=== PATIENT | male | born 1995 | race Caucasian/White ===

== ENCOUNTER 2018-01-08 07:28 | Outpatient (CLI) | payer OTHER | END 2018-01-08 07:29 | disposition critical access hospital (66) | LOC: EMS 07:28 | PROVIDERS: ATTEND Surgery | DX: R10.9 Unspecified abdominal pain (principal); R11.0 Nausea | CPT/HCPCS: A0425; A0427 ==

== ENCOUNTER 2018-01-08 07:50 | Emergency (ER) | payer OTHER ==
[2018-01-08] MEDS ORDERED: SODIUM CHLORIDE 0.9% 1,000 ML IV ONE (08:13)
--- NOTE | 2018-01-08 08:16 | ED Physician Documentation ---
PD HPI ABD PAIN - Stated complaint Stated Complaint: LOWER ABD PX - Chief complaint Chief Complaint: Abd Pain - History obtained from History obtained from: Patient, Family - History of Present Illness Timing - onset: Today Timing - duration: Hours Timing - details: Abrupt onset, Still present Quality: Sharp, Pain Location: LUQ Radiation: Left flank Improved by: Meds (fentanyl IVP) Worsened by: Other (nothing) Associated symptoms: Nausea, Vomiting Similar symptoms before: Diagnosis (kidney stone) Recently seen: Emergency Dept - Additional information Additional information: 22-year-old male with history of kidney stones has developed pain in the left flank pain radiating down into his groin 1 week ago he was seen at [facility] and treated he does feel like he passed this stone about 3 days ago he is now developed symptoms again. He has a known history of kidney stone believes he had his last CAT scan about 2 years ago. Review of Systems Constitutional: denies: Fever Eyes: denies: Decreased vision Ears: denies: Ear pain Nose: denies: Congestion Throat: denies: Sore throat Cardiac: denies: Chest pain / pressure, Palpitations Respiratory: denies: Dyspnea, Cough GI: reports: Abdominal Pain, Nausea, Vomiting : denies: Dysuria, Frequency PD PAST MEDICAL HISTORY - Past Medical History Past Medical History: No Cardiovascular: None Respiratory: None Neuro: None Endocrine/Autoimmune: None GI: None : Kidney stones HEENT: None Psych: None Musculoskeletal: None Derm: None - Past Surgical History Past Surgical History: No - Present Medications Home Medications: Ambulatory Orders Medication Instructions Recorded Confirmed Terbinafine HCl 1 applic TOP BID 14 Days powder 02/12/14 HYDROcod/ACETAM 5/325 [[place] 5/325] 1 - 2 ea PO Q6H PRN #15 tablet 01/08/18 - Allergies Allergies/Adverse Reactions: Allergies Allergy/AdvReac Type Severity Reaction Status Date / Time No Known Drug Allergies Allergy Verified 02/12/14 14:43 - Social History Does the pt smoke?: Yes Smoking Status: Current every day smoker Does the pt drink ETOH?: No ETOH Use: Beer Does the pt have substance abuse?: No Substance Use and Type: Marijuana - Immunizations Immunizations are current?: Yes - POLST Patient has POLST: No PD ED PE NORMAL - Vitals Vital signs reviewed: Yes (normal ) - General General: Alert and oriented X 3, No acute distress, Well developed/nourished - HEENT HEENT: Atraumatic, PERRL, EOMI - Neck Neck: Supple, no meningeal sign, No bony TTP - Cardiac Cardiac: RRR, No murmur - Respiratory Respiratory: No respiratory distress, Clear bilaterally - Abdomen Abdomen: Soft, Non tender - Back Back: No CVA TTP, No spinal TTP - Derm Derm: Normal color, Warm and dry, No rash - Extremities Extremities: No deformity, No edema - Neuro Neuro: Alert and oriented X 3, No motor deficit, No sensory deficit, Normal speech Eye Opening: Spontaneous Motor: Obeys Commands Verbal: Oriented GCS Score: 15 - Psych Psych: Normal mood, Normal affect Results - Vitals Vitals: Vital Signs - 24 hr 01/08/18 01/08/18 01/08/18 07:53 07:59 10:08 Temperature 36 C L 36 C L 37.1 C Heart Rate 48 L 55 L 50 L Respiratory 12 12 16 Rate Blood Pressure 127/70 120/76 125/66 O2 Saturation 100 100 100 Oxygen O2 Source Room air - Labs Labs: Laboratory Tests 01/08/18 01/08/18 01/08/18 08:13 08:13 09:30 WBC 10.6 RBC 5.07 Hgb 11.7 L Hct 37.5 L MCV 73.9 L MCH 23.0 L MCHC 31.1 L RDW 22.7 H Plt Count 233 MPV 8.5 Neut # (Auto) 8.6 H Lymph # (Auto) 1.1 L [place] # (Auto) 0.6 Eos # (Auto) 0.3 Baso # (Auto) 0.1 Absolute Nucleated RBC 0.00 Nucleated RBC % 0.0 Manual Slide Review Indicated Platelet Estimate NORMAL (130-450,000) Platelet Morphology NORMAL APPEARANCE RBC Morph Micro Appear 1+ TEARDROP CELLS Sodium 140 Potassium 4.3 Chloride 105 Carbon Dioxide 29 Anion Gap 6.0 BUN 18 Creatinine 1.0 Estimated GFR (MDRD) 92 Glucose 118 H Calcium 9.3 Total Bilirubin 0.6 AST 22 ALT 27 Alkaline Phosphatase 40 L Total Protein 7.3 Albumin 4.5 Globulin 2.8 Albumin/Globulin Ratio 1.6 Lipase 25 Urine Color YELLOW Urine Clarity CLEAR Urine pH 8.0 H Ur Specific [place] 1.015 Urine Protein NEGATIVE Urine Glucose (UA) NEGATIVE Urine Ketones NEGATIVE Urine Occult Blood LARGE H Urine Nitrite NEGATIVE Urine Bilirubin NEGATIVE Urine Urobilinogen 0.2 (NORMAL) Ur Leukocyte Esterase NEGATIVE Urine RBC TNTC H Urine WBC 0-3 Ur Squamous Epith Cells NONE SEEN Urine Bacteria None Seen Urine Mucus Few Strands Ur Microscopic Review INDICATED Urine Culture Comments NOT INDICATED - Rads (name of study) CT abd/pel without Radiology: Prelim report reviewed (Impression: 1. Moderate left hydronephrosis secondary to an obstructing 4 x 4 mm calculus in the proximal ureter. 2 Nonobstructing right nephrolithiasis. 3 Additional findings as above.), EMP read indepedently, See rad report Procedures - Bedside sono Bedside sono by EMP: With use of bedside ultrasound the left kidney is imaged there is evidence of hydronephrosis and the kidney is sonographically nontender. PD MEDICAL DECISION MAKING - ED course Complexity details: reviewed old records, reviewed results, re-evaluated patient , considered differential, d/w patient, d/w family ED course: 22-year-old male with history of kidney stones has typical symptoms in the left side he has a history of recurrent kidney stone and was last treated for kidney stone 1 week ago. He did not have imaging done at that time and today he is requesting we do imaging.The patient did have relief with the use of the fentanyl and had a second dose of Toradol while here in the emergency department. His imaging is consistent with a obstructing 4 mm stone in the proximal ureter and he has multiple other stones in the right side. I shared these images with the patient and recommended he follow-up with a urologist if he does not have resolution of his pain within the week. - Sepsis Event Vital Signs: Vital Signs - 24 hr 01/08/18 01/08/18 01/08/18 07:53 07:59 10:08 Temperature 36 C L 36 C L 37.1 C Heart Rate 48 L 55 L 50 L Respiratory 12 12 16 Rate Blood Pressure 127/70 120/76 125/66 O2 Saturation 100 100 100 Oxygen O2 Source Room air Departure - Departure Disposition: 01 Home, Self Care Clinical Impression: Ureterolithiasis Condition: Stable Instructions: ED Stone Renal W Colic Follow-Up: [facility] [Provider Group] Prescriptions: HYDROcod/ACETAM 5/325 [[place] 5/325] 1 - 2 ea PO Q6H PRN #15 tablet PRN Reason: Pain Forms: Activity restrictions
[2018-01-08 08:50] LABS: BASOPHILS # (AUTO) 0.1 10^3/uL (0.0-0.1); BASOPHILS % (AUTO) 0.7 %; EOSINOPHILS # (AUTO) 0.3 10^3/uL (0.0-0.7); EOSINOPHILS % (AUTO) 2.9 %; HGB - HEMOGLOBIN 11.7 g/dL (14.0-18.0); LYMPHOCYTES # (AUTO) 1.1 10^3/uL (1.5-3.5); MEAN CORPUSCULAR HGB CONC 31.1 g/dL (32.0-36.0); MEAN CORPUSCULAR VOLUME 73.9 fL (80.0-94.0); MEAN PLATELET VOLUME 8.5 fL (7.4-11.4); MONOCYTES # (AUTO) 0.6 10^3/uL (0.0-1.0); MONOCYTES % (AUTO) 5.2 %; NEUTROPHILS # (AUTO) 8.6 10^3/uL (1.5-6.6); NEUTROPHILS % (AUTO) 81.2 %; PLT - PLATELET COUNT 233 10^3/uL (130-450); RED BLOOD COUNT 5.07 10^6/uL (4.70-6.10); RED CELL DISTRIBUTION WIDTH 22.7 % (12.0-15.0); WHITE BLOOD COUNT 10.6 x10^3/uL (4.8-10.8)
[2018-01-08 08:56] LABS: ALBUMIN 4.5 g/dL (3.2-5.5); ALBUMIN/GLOBULIN RATIO 1.6 (1.0-2.2); BILIRUBIN,TOTAL 0.6 mg/dL (0.2-1.0); CALCIUM 9.3 mg/dL (8.5-10.3); TOTAL PROTEIN 7.3 g/dL (6.7-8.2)
[2018-01-08] MEDS ORDERED: KETOROLAC 60 MG/2 ML VIAL IVP STA (09:41)
[2018-01-08 09:47] LABS: BILIRUBIN,URINE NEGATIVE (NEGATIVE); GLUCOSE, URINE (UA) NEGATIVE (NEGATIVE); KETONES,URINE (UA) NEGATIVE (NEGATIVE); LEUKOCYTE ESTERASE, URINE NEGATIVE (NEGATIVE); NITRITE,URINE NEGATIVE (NEGATIVE); OCCULT BLOOD,URINE LARGE (NEGATIVE); PROTEIN,URINE NEGATIVE (NEGATIVE); UROBILINOGEN,URINE 0.2 (NORMAL) E.U./dL (NORMAL)
[2018-01-08 09:54] LABS: PLATELET ESTIMATE, MANUAL NORMAL (130-450,000) (NORMAL); PLATELET MORPHOLOGY NORMAL APPEARANCE (NORMAL)
[2018-01-08 10:05] LABS: CLARITY,URINE CLEAR (CLEAR)
[2018-01-08 10:10] LABS: BACTERIA,URINE None Seen /HPF (None Seen); MUCUS,URINE Few Strands; RBC,URINE TNTC /HPF (0-5); SQUAMOUS EPITHELIAL CELL,UR NONE SEEN (<= Few)
[2018-01-08 10:11] VITALS: BP 125/66
--- NOTE | 2018-01-08 11:16 | CT Report ---
Procedure Date: 01/08/2018 Accession Number: [id number] / [id number] Procedure: CT - Abdomen/Pelvis W/O CPT Code: FULL RESULT: EXAM: CT ABDOMEN AND PELVIS (CT KUB) EXAM DATE: 01/08/2018 08:36 AM. CLINICAL HISTORY: Left flank pain hydroon bedside. COMPARISONS: None. TECHNIQUE: Routine axial helical CT imaging was performed through the abdomen and pelvis without IV contrast. Reconstructions: Coronal and sagittal. In accordance with CT protocol optimization, one or more of the following dose reduction techniques were utilized for this exam: automated exposure control, adjustment of mA and/or KV based on patient size, or use of iterative reconstructive technique. FINDINGS: Lung Bases: Unremarkable. Right Kidney/Ureter: At least 5 nonobstructing calculi; the largest is in the inferior pole and measures 5 x 4 mm. No hydronephrosis or hydroureter. No perinephric stranding. Left Kidney/Ureter: Moderate hydronephrosis secondary to an obstructing 4 x 4 mm calculus in the proximal ureter, which is at the level of the L4 vertebra. No other urinary tract calculi. There is mild periureteric fat stranding. Other Solid Organs: Mild tomoderate hepatosplenomegaly. Noncontrast images of the pancreas and bilateral adrenal glands are unremarkable. Gallbladder/Bile Ducts: Unremarkable. Peritoneal Cavity: No ascites or pneumoperitoneum. No bowel obstruction or abnormal stool burden. Normal appendix. Pelvic Organs: No bladder stones or wall thickening. Noncontrast images of the visualized pelvic organs are unremarkable. Vasculature: Unremarkable. Other: Bilateral L5 spondylolysis without spondylolisthesis. No acute osseous abnormality or aggressive osseous lesion. IMPRESSION: 1. Moderate left hydronephrosis secondary to an obstructing 4 x 4 mm calculus in the proximal ureter. 2. Nonobstructing right nephrolithiasis. 3. Additional findings as above. RADIA
== END 2018-01-08 10:24 | disposition home or self-care (01) ==
LOC: EDUNIT# → ED 07:50
DX: N13.2 Hydronephrosis with renal and ureteral calculous obstruction (principal); Z87.442 Personal history of urinary calculi; F17.200 Nicotine dependence, unspecified, uncomplicated
CPT/HCPCS: 36415; 74176; 80053; 81001; 81003; 83690; 85025; 87086; 96361; 96374; 99283

== ENCOUNTER 2018-01-14 | Outpatient (CLI) | END 2018-01-14 02:15 | disposition critical access hospital (66) | CPT/HCPCS: A0425; A0427 ==

== ENCOUNTER 2018-01-14 02:31 | Emergency (ER) | payer OTHER ==
[2018-01-14] MEDS ORDERED: KETOROLAC 60 MG/2 ML VIAL IVP STA (02:36)
[2018-01-14] MEDS ORDERED: SODIUM CHLORIDE 0.9% 1,000 ML IV ONE (02:36)
--- NOTE | 2018-01-14 03:18 | CT Report ---
Procedure Date: 01/14/2018 Accession Number: [id number] / [id number] Procedure: CT - Abdomen/Pelvis W/O CPT Code: FULL RESULT: EXAM: CT ABDOMEN AND PELVIS (CT KUB) EXAM DATE: 01/14/2018 03:00 AM. CLINICAL HISTORY: Multiple stones, increased abdominal pain. COMPARISONS: 01/08/2018. TECHNIQUE: Routine axial helical CT imaging was performed through the abdomen and pelvis without IV contrast. Reconstructions: Coronal and sagittal. In accordance with CT protocol optimization, one or more of the following dose reduction techniques were utilized for this exam: automated exposure control, adjustment of mA and/or KV based on patient size, or use of iterative reconstructive technique. FINDINGS: Lung Bases: Unremarkable. Right Kidney/Ureter: Nonobstructing 3 x 2 mm right proximal to mid ureteral stone. A couple of smaller additional nonobstructing right renal stones. Left Kidney/Ureter: Mildly obstructing 4 x 4 mm mid to distal left ureteral stone. Other Solid Organs: Noncontrast images of the solid organs are grossly unremarkable. Gallbladder/Bile Ducts: Unremarkable. Peritoneal Cavity: No free fluid, free air or jose eduardo adenopathy. Bowel is grossly unremarkable. Pelvic Organs: No bladder stones or wall thickening. Noncontrast images of the visualized pelvic organs are unremarkable. Vasculature: Unremarkable. Other: None. IMPRESSION: 1. Mildly obstructing 4 x 4 mm mid to distal left ureteral stone, progressed inferiorly compared to recent CT. 2. Approximately 3 x 2 mm nonobstructing right proximal to mid ureteral stone. 3. Small nonobstructing right renal stones. RADIA
--- NOTE | 2018-01-14 03:55 | ED Physician Documentation ---
PD HPI MALE - Stated complaint Stated Complaint: KIDNEY STONES - Chief complaint Chief Complaint: Abd Pain - History obtained from History obtained from: Patient, EMS - History of Present Illness Timing - onset: Yesterday Timing - details: Gradual onset, Still present Associated symptoms: Back pain Similar symptoms before: Work up / diagnostics, Treatment Recently seen: Not recently seen - Additional information Additional information: Patient is a 22 year old male with a history of recurrent kidney stones who is presenting to the emergency department for back pain. Patient has been getting kidney stones since he was 12. patient called ems because he had pain that was similar to his previous stones. Patient's pain is bilateral. Review of Systems Ten Systems: 10 systems reviewed and negative Constitutional: denies: Fever, Chills GI: reports: Nausea. denies: Vomiting : reports: Hesitancy. denies: Dysuria Musculoskeletal: reports: Back pain PD PAST MEDICAL HISTORY - Past Medical History Cardiovascular: None Respiratory: None Neuro: None Endocrine/Autoimmune: None GI: None : Kidney stones HEENT: None Psych: None Musculoskeletal: None Derm: None - Past Surgical History Past Surgical History: No - Present Medications Home Medications: Ambulatory Orders Medication Instructions Recorded Confirmed Ketorolac [Toradol] 10 mg PO Q6H #14 tablet 01/14/18 Ondansetron Odt [Zofran] 4 mg TL Q6H PRN #14 tablet 01/14/18 Oxycodone HCl/Acetaminophen 1 - 2 each PO Q6H PRN #10 tablet 01/14/18 [Percocet 5-325 mg Tablet] Tamsulosin [Flomax] 0.4 mg PO DAILY #20 capsule 01/14/18 - Allergies Allergies/Adverse Reactions: Allergies Allergy/AdvReac Type Severity Reaction Status Date / Time No Known Drug Allergies Allergy Verified 01/14/18 02:36 - Social History Does the pt smoke?: Yes Smoking Status: Current every day smoker Does the pt drink ETOH?: No Does the pt have substance abuse?: No - Immunizations Immunizations are current?: Yes - POLST Patient has POLST: No PD ED PE NORMAL - Vitals Vital signs reviewed: Yes - General General: Alert and oriented X 3 - HEENT HEENT: Atraumatic - Cardiac Cardiac: RRR - Respiratory Respiratory: No respiratory distress - Abdomen Abdomen: Soft, Non tender, Non distended - Derm Derm: Normal color, No rash - Extremities Extremities: No deformity - Neuro Neuro: Alert and oriented X 3, No motor deficit, Normal speech Eye Opening: Spontaneous PD ED PE EXPANDED - General General: Alert, In Pain - HEENT HEENT: Dry mucous membranes Results - Vitals Vitals: Vital Signs - 24 hr 01/14/18 01/14/18 01/14/18 02:35 02:45 02:46 Temperature 37.1 C Heart Rate 60 45 L Respiratory 18 8 L 12 Rate Blood Pressure 140/87 H 140/87 H O2 Saturation 95 70 L 100 01/14/18 01/14/18 04:17 05:29 Temperature 36.3 C L Heart Rate 57 L 59 L Respiratory 18 16 Rate Blood Pressure 123/69 130/72 O2 Saturation 99 98 Oxygen O2 Source Room air - Labs Labs: Laboratory Tests 01/14/18 04:30 Urine Color YELLOW Urine Clarity CLEAR Urine pH 5.5 Ur Specific [place] >=1.030 H Urine Protein 100 H Urine Glucose (UA) NEGATIVE Urine Ketones NEGATIVE Urine Occult Blood LARGE H Urine Nitrite NEGATIVE Urine Bilirubin NEGATIVE Urine Urobilinogen 0.2 (NORMAL) Ur Leukocyte Esterase NEGATIVE Urine RBC TNTC H Urine WBC 0-3 Ur Squamous Epith Cells NONE SEEN Urine Bacteria Rare Ur Microscopic Review INDICATED Urine Culture Comments NOT INDICATED - Rads (name of study) ct abd pelvis Radiology: Final report received (bilateral uretal calculi, mild obstruction), See rad report PD MEDICAL DECISION MAKING - ED course Complexity details: reviewed old records, reviewed results, re-evaluated patient , considered differential, d/w patient ED course: Patient was seen and examined at bedside. Iv access was gained. patient was treated with a fluid bolus, zofran and toradol. Imaging was ordered. When patient returned form imaging patient was re-evaluated and his pain was well controlled. patient's urine was collected and showed no signs of infection. patient was able to tolerate PO without difficulty. Patient had no signs of infection and his stones were under 5mm. patient required no further inpatient work up and was stable for discharge with outpatient follow up. - Sepsis Event Vital Signs: Vital Signs - 24 hr 01/14/18 01/14/18 01/14/18 02:35 02:45 02:46 Temperature 37.1 C Heart Rate 60 45 L Respiratory 18 8 L 12 Rate Blood Pressure 140/87 H 140/87 H O2 Saturation 95 70 L 100 01/14/18 01/14/18 04:17 05:29 Temperature 36.3 C L Heart Rate 57 L 59 L Respiratory 18 16 Rate Blood Pressure 123/69 130/72 O2 Saturation 99 98 Oxygen O2 Source Room air Departure - Departure Disposition: 01 Home, Self Care Clinical Impression: Ureterolithiasis Condition: Good Instructions: ED Stone Renal W Colic Follow-Up: primary,care provider [Other] - Within 1 week Prescriptions: Ketorolac [Toradol] 10 mg PO Q6H #14 tablet Ondansetron Odt [Zofran] 4 mg TL Q6H PRN #14 tablet PRN Reason: Nausea / Vomiting Oxycodone HCl/Acetaminophen [Percocet 5-325 mg Tablet] 1 - 2 each PO Q6H PRN # 10 tablet PRN Reason: pain Tamsulosin [Flomax] 0.4 mg PO DAILY #20 capsule Comments: Your symptoms today are being caused by kidney stones. You have them on both sides. It is important that you stay well hydrated, doubling your fluid intake. You can take to ketoralac or tylenol as needed for pain and percocet for breakthrough pain. You should follow up with your doctor for further care. You may return to the emergency department at any time for new, worsening or uncontrollable symptoms. Forms: Activity restrictions Discharge Date/Time: 01/14/18 05:31
[2018-01-14 04:39] LABS: GLUCOSE, URINE (UA) NEGATIVE (NEGATIVE); KETONES,URINE (UA) NEGATIVE (NEGATIVE); LEUKOCYTE ESTERASE, URINE NEGATIVE (NEGATIVE); NITRITE,URINE NEGATIVE (NEGATIVE); OCCULT BLOOD,URINE LARGE (NEGATIVE); PH,URINE 5.5 PH (5.0-7.5); PROTEIN,URINE 100 mg/dL (NEGATIVE); UROBILINOGEN,URINE 0.2 (NORMAL) E.U./dL (NORMAL)
[2018-01-14 04:41] LABS: BILIRUBIN,URINE NEGATIVE (NEGATIVE); CLARITY,URINE CLEAR (CLEAR); ICTOTEST,URINE NEGATIVE
[2018-01-14 04:47] LABS: BACTERIA,URINE Rare /HPF (None Seen); RBC,URINE TNTC /HPF (0-5); SQUAMOUS EPITHELIAL CELL,UR NONE SEEN (<= Few)
[2018-01-14] MEDS ORDERED: ONDANSETRON ODT 4 MG Prepack 2 TL STA (04:57)
[2018-01-14] MEDS ORDERED: oxyCODONE/ACET 5/325 Prepack 4 PO STA (04:57)
[2018-01-14 05:31] VITALS: BP 130/72
== END 2018-01-14 05:31 | disposition home or self-care (01) ==
LOC: EDUNIT# → ED 02:31
DX: N20.2 Calculus of kidney with calculus of ureter (principal); Z87.442 Personal history of urinary calculi; F17.200 Nicotine dependence, unspecified, uncomplicated
CPT/HCPCS: 74176; 81001; 81003; 87086; 96361; 96374; 99283; 99284

== ENCOUNTER 2018-01-16 05:07 | Outpatient (CLI) | payer OTHER | END 2018-01-16 05:08 | disposition critical access hospital (66) | LOC: EMS 05:07 | PROVIDERS: ATTEND Surgery | DX: R10.32 Left lower quadrant pain (principal) | CPT/HCPCS: A0425; A0427 ==

== ENCOUNTER 2018-01-16 05:23 | Emergency (ER) | payer OTHER ==
[2018-01-16] MEDS: LIDOCAINE-MPF 2% 6 ML in SODIUM CHLORIDE 0.9% 50 ML IV STA (05:45)
[2018-01-16] MEDS: KETOROLAC 60 MG/2 ML VIAL IVP STA (05:45)
[2018-01-16] MEDS: SODIUM CHLORIDE 0.9% 1,000 ML IV ONE (05:50)
--- NOTE | 2018-01-16 05:50 | ED Physician Documentation ---
PD HPI MALE - Stated complaint Stated Complaint: FLANK/BACK PAIN - Chief complaint Chief Complaint: Back Pain - History obtained from History obtained from: Patient, EMS - History of Present Illness Timing - onset: Chronic Similar symptoms before: Work up / diagnostics, Treatment Recently seen: Emergency Dept - Additional information Additional information: Patient is a 22 year old male with a history of recurrent kidney stones who is presenting to the emergency department for back and flank pain. Patient was evaluated two days prior and was found to have a 4mm by 4mm stone on the left and 3mm by 2mm stone on the right. Patient states that the pain on the left has not gone away. Patient took the prescribed flomax and toradol but did not take the narcotic pain medication. Review of Systems Constitutional: denies: Fever, Chills Eyes: reports: Reviewed and negative Ears: reports: Reviewed and negative Nose: reports: Reviewed and negative Throat: reports: Reviewed and negative : denies: Dysuria, Frequency, Hesitancy Musculoskeletal: reports: Back pain PD PAST MEDICAL HISTORY - Past Medical History Past Medical History: Yes Cardiovascular: None Respiratory: None Neuro: None Endocrine/Autoimmune: None GI: None : Kidney stones HEENT: None Psych: None Musculoskeletal: None Derm: None - Past Surgical History Past Surgical History: No - Present Medications Home Medications: Ambulatory Orders Medication Instructions Recorded Confirmed Ketorolac [Toradol] 10 mg PO Q6H #14 tablet 01/14/18 Ondansetron Odt [Zofran] 4 mg TL Q6H PRN #14 tablet 01/14/18 Oxycodone HCl/Acetaminophen 1 - 2 each PO Q6H PRN #10 tablet 01/14/18 [Percocet 5-325 mg Tablet] Tamsulosin [Flomax] 0.4 mg PO DAILY #20 capsule 01/14/18 Ketorolac [Toradol] 10 mg PO Q6H #14 tablet 01/16/18 Levofloxacin [Levaquin] 750 mg PO DAILY #4 tablet 01/16/18 Ondansetron Odt [Zofran] 4 mg TL Q6H PRN #14 tablet 01/16/18 - Allergies Allergies/Adverse Reactions: Allergies Allergy/AdvReac Type Severity Reaction Status Date / Time No Known Drug Allergies Allergy Verified 01/14/18 02:36 - Social History Does the pt smoke?: Yes Smoking Status: Current every day smoker Does the pt drink ETOH?: No Does the pt have substance abuse?: No - Immunizations Immunizations are current?: Yes - POLST Patient has POLST: No PD ED PE NORMAL - Vitals Vital signs reviewed: Yes - General General: Alert and oriented X 3 - HEENT HEENT: Atraumatic - Cardiac Cardiac: RRR - Respiratory Respiratory: No respiratory distress - Abdomen Abdomen: Soft, Non distended - Derm Derm: Normal color, Warm and dry - Extremities Extremities: No deformity - Neuro Neuro: Alert and oriented X 3 Eye Opening: Spontaneous Motor: Obeys Commands Verbal: Oriented GCS Score: 15 PD ED PE EXPANDED - General General: Alert, In Pain - HEENT HEENT: Dry mucous membranes Results - Vitals Vitals: Oxygen O2 Source Room air - Labs Labs: Microbiology 01/16/18 06:10 Urine Culture - Final Urine,Clean Catch LESS THAN 10,000 COLONIES/ML polymicrobial growth including potential pathogens. This is suggestive of skin or other contamination. Laboratory Tests 01/16/18 06:10 Urine Color YELLOW Urine Clarity HAZY Urine pH 8.0 H Ur Specific [place] 1.010 Urine Protein TRACE Urine Glucose (UA) NEGATIVE Urine Ketones NEGATIVE Urine Occult Blood LARGE H Urine Nitrite NEGATIVE Urine Bilirubin NEGATIVE Urine Urobilinogen 0.2 (NORMAL) Ur Leukocyte Esterase TRACE H Urine RBC TNTC H Urine WBC 6-10 H Ur Squamous Epith Cells FEW Squamous Urine Bacteria Few Urine Mucus Few Strands Ur Microscopic Review INDICATED Urine Culture Comments INDICATED PD MEDICAL DECISION MAKING - ED course Complexity details: reviewed old records, reviewed results, re-evaluated patient , considered differential, d/w patient ED course: Patient was seen and examined at bedside. IV access was gained and patient was treated with an additional fluid bolus, toradol and lidocaine. Previous results were reviewed and showed that the stone on the left was 4mm. Patient's urine was collected. there were questionable signs of infection. patient was covered with antibiotics. Patient required no further inpatient work up and was stable for discharge with outpatient follow up. - Sepsis Event Vital Signs: Oxygen O2 Source Room air Departure - Departure Disposition: 01 Home, Self Care Clinical Impression: Ureterolithiasis Condition: Good Instructions: ED Stone Renal W Colic Follow-Up: [facility] [Provider Group] Prescriptions: Ketorolac [Toradol] 10 mg PO Q6H #14 tablet Levofloxacin [Levaquin] 750 mg PO DAILY #4 tablet Ondansetron Odt [Zofran] 4 mg TL Q6H PRN #14 tablet PRN Reason: Nausea / Vomiting Comments: Your symptoms today are being caused by kidney stone. it should pass based on its size. due to your frequency it is time that you follow up with a urologist. the number for [facility] has been given to you. Make sure you stay well hydrated and call the clinic to schedule a follow up appointment. Forms: Activity restrictions Discharge Date/Time: 01/16/18 07:23
[2018-01-16 06:20] LABS: BILIRUBIN,URINE NEGATIVE (NEGATIVE); GLUCOSE, URINE (UA) NEGATIVE (NEGATIVE); KETONES,URINE (UA) NEGATIVE (NEGATIVE); LEUKOCYTE ESTERASE, URINE TRACE (NEGATIVE); NITRITE,URINE NEGATIVE (NEGATIVE); OCCULT BLOOD,URINE LARGE (NEGATIVE); PROTEIN,URINE TRACE mg/dL (NEGATIVE); UROBILINOGEN,URINE 0.2 (NORMAL) E.U./dL (NORMAL)
[2018-01-16 06:26] LABS: CLARITY,URINE HAZY (CLEAR)
[2018-01-16 06:37] LABS: BACTERIA,URINE Few /HPF (None Seen); RBC,URINE TNTC /HPF (0-5); SQUAMOUS EPITHELIAL CELL,UR FEW Squamous (<= Few)
[2018-01-16 06:38] LABS: MUCUS,URINE Few Strands
[2018-01-16] MEDS: levoFLOXacin 250 MG TABLET PO STA (06:49)
[2018-01-16] MEDS: fentaNYL 100 MCG/2 ML VIAL IVP STA (06:49)
[2018-01-16 07:14] VITALS: BP 123/75
== END 2018-01-16 07:23 | disposition home or self-care (01) ==
LOC: EDUNIT# → ED 05:23
DX: F17.200 Nicotine dependence, unspecified, uncomplicated (principal)
CPT/HCPCS: 81001; 87086; 96361; 96374; 96375; 99283; 99284; A9270; J7040; 81003

== ENCOUNTER 2018-01-25 02:58 | Outpatient (CLI) | payer OTHER | END 2018-01-25 02:59 | disposition critical access hospital (66) | LOC: EMS 02:58 | PROVIDERS: ATTEND Surgery | DX: R10.9 Unspecified abdominal pain (principal) | CPT/HCPCS: A0425; A0429 ==

== ENCOUNTER 2018-01-25 03:18 | Emergency (ER) | payer OTHER ==
[2018-01-25] MEDS ORDERED: KETOROLAC 60 MG/2 ML VIAL IVP STA (03:23)
[2018-01-25] MEDS ORDERED: LIDOCAINE-MPF 2% 5 ML in SODIUM CHLORIDE 0.9% 50 ML IV STA (03:23)
[2018-01-25] MEDS ORDERED: SODIUM CHLORIDE 0.9% 1,000 ML IV ONE ×2 (03:23→04:07)
[2018-01-25 03:44] LABS: BASOPHILS # (AUTO) 0.1 10^3/uL (0.0-0.1); BASOPHILS % (AUTO) 0.5 %; EOSINOPHILS # (AUTO) 0.5 10^3/uL (0.0-0.7); EOSINOPHILS % (AUTO) 4.8 %; HGB - HEMOGLOBIN 10.9 g/dL (14.0-18.0); LYMPHOCYTES # (AUTO) 2.1 10^3/uL (1.5-3.5); MEAN CORPUSCULAR HEMOGLOBIN 23.3 pg (27.0-31.0); MEAN CORPUSCULAR HGB CONC 32.2 g/dL (32.0-36.0); MEAN CORPUSCULAR VOLUME 72.2 fL (80.0-94.0); MEAN PLATELET VOLUME 9.2 fL (7.4-11.4); MONOCYTES # (AUTO) 0.7 10^3/uL (0.0-1.0); MONOCYTES % (AUTO) 7.4 %; NEUTROPHILS # (AUTO) 6.7 10^3/uL (1.5-6.6); NEUTROPHILS % (AUTO) 66.3 %; PLT - PLATELET COUNT 234 10^3/uL (130-450); RED BLOOD COUNT 4.68 10^6/uL (4.70-6.10); RED CELL DISTRIBUTION WIDTH 22.4 % (12.0-15.0); WHITE BLOOD COUNT 10.1 x10^3/uL (4.8-10.8)
[2018-01-25 03:49] LABS: ALBUMIN 4.8 g/dL (3.2-5.5); ALBUMIN/GLOBULIN RATIO 1.9 (1.0-2.2); BILIRUBIN,TOTAL 0.7 mg/dL (0.2-1.0); CALCIUM 9.4 mg/dL (8.5-10.3); CREATININE 1.7 mg/dL (0.6-1.2); TOTAL PROTEIN 7.3 g/dL (6.7-8.2)
--- NOTE | 2018-01-25 04:26 | CT Report ---
Procedure Date: 01/25/2018 Accession Number: [id number] / [id number] Procedure: CT - Abdomen/Pelvis W/O CPT Code: FULL RESULT: EXAM: CT ABDOMEN AND PELVIS WITHOUT CONTRAST EXAM DATE: 01/25/2018 03:56 AM. CLINICAL HISTORY: Renal colic, not improving. COMPARISONS: ABDOMEN/PELVIS W/O 01/14/2018. TECHNIQUE: Routine helical CT imaging was performed through the abdomen and pelvis. IV contrast: Not present. Enteric contrast: No. Reconstructions: Coronal and sagittal. In accordance with CT protocol optimization, one or more of the following dose reduction techniques were utilized for this exam: automated exposure control, adjustment of mA and/or KV based on patient size, or use of iterative reconstructive technique. FINDINGS: Right Kidney/Ureter: There are 2 punctate right lower kidney stones. There is no right-sided hydronephrosis. There is a nonobstructing right ureteral stone measuring 3 mm within the proximal ureter, without significant change from the prior. No definite renal mass within the confines of a non-contrast exam. Left Kidney/Ureter: The prior noted obstructing stone within the distal ureter has progressed distally, now at the UVJ. This measures 5 mm as before (image 73 series 3). This stone measures 620 Hounsfield units in density. Associated moderate left-sided hydroureteronephrosis remains. No definite renal mass within the confines of a non-contrast exam. Abdominal Solid Organs: Abdominal parenchymal organs are without significant abnormality within the confines of a noncontrast exam. Bowel: No evidence of bowel obstruction. Appendix: Normal. Lymph Nodes: No definite pathologic lymphadenopathy. Fluid: No significant ascites. Vasculature: Normal caliber aorta. Pelvis: No bladder stones. Visualized pelvic organs are without significant abnormality within the confines of a noncontrast exam. Bones: No definite suspicious bony lesions demonstrated. Lower Chest: No significant lung base consolidation or effusion. IMPRESSION: 1. Moderate left hydroureteronephrosis due to a 5 mm UVJ stone. This stone has progressed distally since the prior study. 2. There is a 3 mm stone within the right proximal ureter as before. There are 2 punctate right lower kidney stones. RADIA
[2018-01-25 04:48] LABS: PLATELET ESTIMATE, MANUAL NORMAL (130-450,000) (NORMAL)
--- NOTE | 2018-01-25 05:52 | ED Physician Documentation ---
PD HPI ABD PAIN - Stated complaint Stated Complaint: ABD PAIN - Chief complaint Chief Complaint: Abd Pain - History obtained from History obtained from: Patient, EMS - History of Present Illness Timing - onset: How many weeks ago (2) Timing - details: Intermittant Quality: Aching Location: LLQ Radiation: Left flank Associated symptoms: Nausea. No: Fever, Vomiting Similar symptoms before: Work up / diagnostics, Treatment Recently seen: Emergency Dept - Additional information Additional information: patient is a 22 year old male with a history of recurrent kidney stones who is presenting to the emergency department for abdominal and flank pain. patient has had imaging that showed 3mm and 4mm stones but patient reports that he still has not passed it. patient states that he did just get back from [place] where it was 100 degrees outside most days and he ate mainly at the [employer] house, fast food and food so he might have become more dehydrated. patient denies fevers chills, nausea or vomiting. Patient has a follow up appointment in about 2 weeks. Review of Systems Ten Systems: 10 systems reviewed and negative Constitutional: denies: Fever, Chills GI: reports: Abdominal Pain : reports: Hesitancy Musculoskeletal: reports: Back pain PD PAST MEDICAL HISTORY - Past Medical History Cardiovascular: None Respiratory: None Neuro: None Endocrine/Autoimmune: None GI: None : Kidney stones HEENT: None Psych: None Musculoskeletal: None Derm: None - Past Surgical History Past Surgical History: No - Present Medications Home Medications: Ambulatory Orders Medication Instructions Recorded Confirmed Ketorolac [Toradol] 10 mg PO Q6H #14 tablet 01/14/18 Ondansetron Odt [Zofran] 4 mg TL Q6H PRN #14 tablet 01/14/18 Oxycodone HCl/Acetaminophen 1 - 2 each PO Q6H PRN #10 tablet 01/14/18 [Percocet 5-325 mg Tablet] Tamsulosin [Flomax] 0.4 mg PO DAILY #20 capsule 01/14/18 Ketorolac [Toradol] 10 mg PO Q6H #14 tablet 01/16/18 Levofloxacin [Levaquin] 750 mg PO DAILY #4 tablet 01/16/18 Ondansetron Odt [Zofran] 4 mg TL Q6H PRN #14 tablet 01/16/18 Tamsulosin [Flomax] 0.4 mg PO DAILY #20 capsule 01/25/18 - Allergies Allergies/Adverse Reactions: Allergies Allergy/AdvReac Type Severity Reaction Status Date / Time No Known Drug Allergies Allergy Verified 01/14/18 02:36 - Social History Does the pt smoke?: Yes Smoking Status: Current every day smoker Does the pt drink ETOH?: No Does the pt have substance abuse?: No - Immunizations Immunizations are current?: Yes - POLST Patient has POLST: No PD ED PE NORMAL - Vitals Vital signs reviewed: Yes - General General: Alert and oriented X 3 - HEENT HEENT: Atraumatic, PERRL - Cardiac Cardiac: RRR - Respiratory Respiratory: No respiratory distress - Abdomen Abdomen: Soft - Derm Derm: Normal color, Warm and dry - Extremities Extremities: No deformity - Neuro Neuro: Alert and oriented X 3 Eye Opening: Spontaneous Motor: Obeys Commands Verbal: Oriented GCS Score: 15 - Psych Psych: Normal mood PD ED PE EXPANDED - HEENT HEENT: Dry mucous membranes Results - Vitals Vitals: Vital Signs - 24 hr 01/25/18 01/25/18 03:20 04:02 Temperature 37.0 C Heart Rate 109 H 52 L Respiratory 20 18 Rate Blood Pressure 131/87 H 126/68 O2 Saturation 100 100 Oxygen O2 Source Room air - Labs Labs: Laboratory Tests 01/25/18 01/25/18 01/25/18 03:28 03:28 05:49 WBC 10.1 RBC 4.68 L Hgb 10.9 L Hct 33.8 L MCV 72.2 L MCH 23.3 L MCHC 32.2 RDW 22.4 H Plt Count 234 MPV 9.2 Neut # (Auto) 6.7 H Lymph # (Auto) 2.1 Bartholomew # (Auto) 0.7 Eos # (Auto) 0.5 Baso # (Auto) 0.1 Absolute Nucleated RBC 0.00 Nucleated RBC % 0.0 Manual Slide Review Indicated Platelet Estimate NORMAL (130-450,000) RBC Morph Micro Appear 1+ SCHISTOCYTES Sodium 138 Potassium 3.3 L Chloride 104 Carbon Dioxide 25 Anion Gap 9.0 BUN 19 Creatinine 1.7 H Estimated GFR (MDRD) 50 L Glucose 115 H Calcium 9.4 Total Bilirubin 0.7 AST 22 ALT 19 Alkaline Phosphatase 45 Total Protein 7.3 Albumin 4.8 Globulin 2.5 Albumin/Globulin Ratio 1.9 Lipase 28 Urine Color YELLOW Urine Clarity CLEAR Urine pH 6.0 Ur Specific [place] 1.010 Urine Protein NEGATIVE Urine Glucose (UA) NEGATIVE Urine Ketones NEGATIVE Urine Occult Blood LARGE H Urine Nitrite NEGATIVE Urine Bilirubin NEGATIVE Urine Urobilinogen 0.2 (NORMAL) Ur Leukocyte Esterase NEGATIVE Urine RBC 11-25 H Urine WBC 0-3 Ur Squamous Epith Cells NONE SEEN Urine Bacteria Rare Urine Mucus Few Strands Ur Microscopic Review INDICATED Urine Culture Comments NOT INDICATED - Rads (name of study) ct abd pelvis Radiology: Final report received, See rad report (5mm stone on the left, mild hydro stone seems to be progressing) PD MEDICAL DECISION MAKING - ED course Complexity details: reviewed old records, reviewed results, re-evaluated patient , considered differential, d/w patient ED course: patient was seen and examined at bedside. Iv access was gained. labs were drawn. patient was treated with NS bolus, toradol and lidocaine. Imaging was ordered. Patient was found to have suni and a second liter of fluid was started. Patient's CT showed that the stone was progressing and was 5mm. Patient's pain greatly improved. Patient was able to urinate and was treated with a third liter of fluid. patient's urinalysis showed no sign of infection. patient was well appearing and able to tolerate PO. patient did not require inpatient work up or transfer at this time and was stable for discharge with outpatient follow up. - Sepsis Event Vital Signs: Vital Signs - 24 hr 01/25/18 01/25/18 03:20 04:02 Temperature 37.0 C Heart Rate 109 H 52 L Respiratory 20 18 Rate Blood Pressure 131/87 H 126/68 O2 Saturation 100 100 Oxygen O2 Source Room air Departure - Departure Disposition: 01 Home, Self Care Clinical Impression: Ureterolithiasis Condition: Good Instructions: ED Stone Renal W Colic Follow-Up: primary,care provider [Other] - Within 3 Days Prescriptions: Tamsulosin [Flomax] 0.4 mg PO DAILY #20 capsule Comments: Your symptoms today are being caused by a kidney stone and some dehydration. Your kidney function decreased since the last time you were here so you should try to avoid nsaids (ibuprofen, toradol etc). You should double your water consumption from what you have been doing. You should take tylenol 1000mg as needed for pain. You should call the urologist's office today to see if you can move up your appointment. You may return to the emergency department at any time for new, worsening or uncontrollable symptoms. Forms: Activity restrictions
[2018-01-25 05:58] LABS: BILIRUBIN,URINE NEGATIVE (NEGATIVE); GLUCOSE, URINE (UA) NEGATIVE (NEGATIVE); KETONES,URINE (UA) NEGATIVE (NEGATIVE); LEUKOCYTE ESTERASE, URINE NEGATIVE (NEGATIVE); NITRITE,URINE NEGATIVE (NEGATIVE); OCCULT BLOOD,URINE LARGE (NEGATIVE); PROTEIN,URINE NEGATIVE (NEGATIVE); UROBILINOGEN,URINE 0.2 (NORMAL) E.U./dL (NORMAL)
[2018-01-25 06:02] LABS: CLARITY,URINE CLEAR (CLEAR)
[2018-01-25 06:15] LABS: BACTERIA,URINE Rare /HPF (None Seen); MUCUS,URINE Few Strands; SQUAMOUS EPITHELIAL CELL,UR NONE SEEN (<= Few)
[2018-01-25 06:48] VITALS: BP 129/65
== END 2018-01-25 06:48 | disposition home or self-care (01) ==
LOC: EDUNIT# → ED 03:18
DX: N20.1 Calculus of ureter (principal); E86.0 Dehydration; F17.200 Nicotine dependence, unspecified, uncomplicated
CPT/HCPCS: 36415; 74176; 80053; 81001; 83690; 85025; 96361; 96374; 96375; 99283; J7040; 81003; 87086

== ENCOUNTER 2019-01-15 13:56 | Emergency (ER) | payer OTHER ==
[2019-01-15 14:09] VITALS: BP 118/59
--- NOTE | 2019-01-15 14:34 | ED Physician Documentation ---
History of Present Illness - Stated complaint Stated Complaint: BACK PX - Chief complaint Chief Complaint: Back Pain - History obtained from History obtained from: Patient - History of Present Illness Timing: Prior to arrival - Additonal information Additional information: Patient is a 23-year-old previously healthy male presenting with diffuse neck pain and muscle spasm over the past several hours. Patient has taken ibuprofen without much relief. Patient denies any inciting incident, trauma, or fall. Patient states that pain is both on the left and right sides of his neck and causing him to have to put his chin down and tilted his head to the left. Patient reports decreased range of motion particularly in rotation, as well as flexion and extension. Patient denies any fever, chills, skin changes, or other complaints. Patient denies any previous event such as these, as well as any prescription medications regularly. No other improving or worsening factors noted. Review of Systems Constitutional: denies: Fever Skin: denies: Rash Musculoskeletal: reports: Neck pain PD PAST MEDICAL HISTORY - Past Medical History Cardiovascular: None Respiratory: None Neuro: None Endocrine/Autoimmune: None GI: None : Kidney stones HEENT: None Psych: None Musculoskeletal: None Derm: None - Past Surgical History Past Surgical History: No - Present Medications Home Medications: Ambulatory Orders Medication Instructions Recorded Confirmed Ketorolac [Toradol] 10 mg PO Q6H #14 tablet 01/14/18 Ondansetron Odt [Zofran] 4 mg TL Q6H PRN #14 tablet 01/14/18 Oxycodone HCl/Acetaminophen 1 - 2 each PO Q6H PRN #10 tablet 01/14/18 [Percocet 5-325 mg Tablet] Tamsulosin [Flomax] 0.4 mg PO DAILY #20 capsule 01/14/18 Ketorolac [Toradol] 10 mg PO Q6H #14 tablet 01/16/18 Levofloxacin [Levaquin] 750 mg PO DAILY #4 tablet 01/16/18 Ondansetron Odt [Zofran] 4 mg TL Q6H PRN #14 tablet 01/16/18 Tamsulosin [Flomax] 0.4 mg PO DAILY #20 capsule 01/25/18 Cyclobenzaprine [Flexeril] 10 mg PO TID PRN #20 tablet 01/15/19 Hydrocodone/Acetaminophen 1 - 2 each PO Q6H PRN #14 tablet 01/15/19 [Hydrocodon-Acetaminophen 5-325] - Allergies Allergies/Adverse Reactions: Allergies Allergy/AdvReac Type Severity Reaction Status Date / Time No Known Drug Allergies Allergy Verified 01/14/18 02:36 - Social History Does the pt smoke?: Yes Smoking Status: Current every day smoker Does the pt drink ETOH?: No Does the pt have substance abuse?: No - Immunizations Immunizations are current?: Yes - POLST Patient has POLST: No PD ED PE NORMAL - Vitals Vital signs reviewed: Yes - General General: Alert and oriented X 3, No acute distress, Well developed/nourished - HEENT HEENT: Atraumatic, Moist mucous membranes - Neck Neck: No bony TTP, Other (Patient resting with chin towards chest and head rotated and tilted towards the left. Reduced range of motion in all directions, but worse towards the left and rotation.) - Respiratory Respiratory: No respiratory distress - Derm Derm: Normal color, Warm and dry, No rash - Extremities Extremities: No deformity, No tenderness to palpate - Neuro Neuro: Alert and oriented X 3, No motor deficit, No sensory deficit - Psych Psych: Normal mood, Normal affect Results - Vitals Vitals: Vital Signs - 24 hr 01/15/19 14:06 Temperature 36.9 C Heart Rate 56 L Respiratory 16 Rate Blood Pressure 118/59 L O2 Saturation 100 Oxygen O2 Source Room air PD MEDICAL DECISION MAKING - ED course Complexity details: considered differential, d/w patient ED course: Patient presenting with muscular skeletal injury or muscle spasm, specifically torticollis or cervical dystonia. No known injury and patient does not have midline tenderness or step-offs. Do not have high suspicion for vertebral or spinal cord injury at this time. No overlying skin changes to indicate abscess, cellulitis, or rash. Patient denies medications and therefore I do not feel this is medication induced torticollis. Otherwise, patient's physical exam is benign. Do not find evidence of trauma, systemic illness, neurological deficit. Do not feel he requires invasive testing or imaging at this time, but can be treated at home with supportive cares including pain and muscle relaxant medications, stretching, heat, and massage. Discussed use of these medications and supportive cares at home, as well as return precautions and appropriate follow-up. Patient received Toradol in ED prior to discharge. Patient amenable to this plan. Departure - Departure Disposition: 01 Home, Self Care Clinical Impression: Torticollis Condition: Good Instructions: Torticollis Follow-Up: your,doctor [Other] - Within 3 Days Prescriptions: Cyclobenzaprine [Flexeril] 10 mg PO TID PRN #20 tablet PRN Reason: Spasms Hydrocodone/Acetaminophen [Hydrocodon-Acetaminophen 5-325] 1 - 2 each PO Q6H PRN #14 tablet PRN Reason: pain Comments: Recommend stretching, heat application, and massage. Avoid ice. If taking [place] for pain, do not combine with Tylenol, alcohol, or driving. If taking [place] regularly, recommend use of stool softener or laxative to help avoid constipation. If not taking [place], may use ibuprofen/Tylenol. Please follow-up with your primary care physician in the next 2 to 3 days. Return to ED sooner if you experience worsening symptoms or other concerns. Forms: Activity restrictions
[2019-01-15] MEDS ORDERED: KETOROLAC 60 MG/2 ML VIAL IM STA (14:41)
== END 2019-01-15 14:56 | disposition home or self-care (01) ==
LOC: ED 13:56
DX: M43.6 Torticollis (principal); F17.200 Nicotine dependence, unspecified, uncomplicated
CPT/HCPCS: 96372; 99283

== ENCOUNTER 2020-05-04 15:24 | Emergency (ER) | payer OTHER ==
--- NOTE | 2020-05-04 15:59 | ED Physician Documentation ---
History of Present Illness - Stated complaint Stated Complaint: PX WHEN BREATHING - Chief complaint Chief Complaint: Resp - History obtained from History obtained from: Patient, Friend - History of Present Illness Timing: How many days ago (3) - Additonal information Additional information: 25-year-old male complains of a 3-day history of pain in his back when he takes a deep breath. He states the pain is worse if he takes a deeper breath but it hurts to breathe and this is a pain that he is not familiar with. He has had pain from kidney stone before and this is nothing like that pain. It is responsive to his breathing. 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 Review of Systems Constitutional: denies: Fever Eyes: denies: Decreased vision Ears: denies: Ear pain Nose: denies: Congestion Throat: denies: Sore throat Cardiac: reports: Chest pain / pressure. denies: Palpitations, Pedal edema, Calf pain Respiratory: denies: Dyspnea, Cough, Wheezing GI: denies: Abdominal Pain, Nausea, Vomiting : denies: Dysuria, Frequency PD PAST MEDICAL HISTORY - Past Medical History Cardiovascular: None Respiratory: None Neuro: None Endocrine/Autoimmune: None GI: None : Kidney stones HEENT: None Psych: None Musculoskeletal: None Derm: None - Past Surgical History Past Surgical History: No - Present Medications Home Medications: Ambulatory Orders Medication Instructions Recorded Confirmed Famotidine 20 mg PO DAILY #30 tablet 02/26/20 Ondansetron Odt [Zofran] 4 mg TL Q6H PRN #20 tablet 02/26/20 - Allergies Allergies/Adverse Reactions: Allergies Allergy/AdvReac Type Severity Reaction Status Date / Time Penicillins Allergy Unknown Verified 05/04/20 15:31 - Social History Does the pt smoke?: Yes Smoking Status: Current every day smoker Does the pt drink ETOH?: No Does the pt have substance abuse?: No - Immunizations Immunizations are current?: Yes - POLST Patient has POLST: No PD ED PE NORMAL - Vitals Vital signs reviewed: Yes (Normal) - General General: Alert and oriented X 3, No acute distress, Well developed/nourished - HEENT HEENT: Atraumatic, PERRL, EOMI - Neck Neck: Supple, no meningeal sign, No bony TTP - Cardiac Cardiac: RRR, No murmur - Respiratory Respiratory: No respiratory distress, Clear bilaterally, Other (There is no tenderness to the chest wall) - Abdomen Abdomen: Soft, Non tender - Back Back: No CVA TTP, No spinal TTP - Derm Derm: Normal color, Warm and dry, No rash - Extremities Extremities: No deformity, No edema - Neuro Neuro: Alert and oriented X 3, health and wellness coordinator 2-12 intact, No motor deficit, No sensory deficit, Normal speech Eye Opening: Spontaneous Motor: Obeys Commands Verbal: Oriented GCS Score: 15 - Psych Psych: Normal mood, Normal affect Results - Vitals Vitals: Vital Signs - 24 hr 05/04/20 05/04/20 15:31 16:47 Temperature 36.7 C Heart Rate 70 58 L Respiratory 18 18 Rate Blood Pressure 110/61 117/65 O2 Saturation 99 100 Oxygen O2 Source Room air - Rads (name of study) chest Radiology: Prelim report reviewed (Impression: Normal chest radiographs.), EMP read indepedently, See rad report PD MEDICAL DECISION MAKING - ED course Complexity details: reviewed old records, reviewed results, re-evaluated patient, considered differential, d/w patient, d/w family ED course: 25 y/o male with pleuritic chest pain has a normal-appearing chest x-ray and he is administered dexamethasone and Toradol. Departure - Departure Disposition: 01 Home, Self Care Clinical Impression: Pleurisy Condition: Stable Instructions: ED Chest Pain Pleurisy Follow-Up: [facility] [Provider Group] Forms: Activity restrictions
[2020-05-04] MEDS ORDERED: CHERRY SYRUP 10 ML UDC PO ONE (16:00)
[2020-05-04] MEDS ORDERED: KETOROLAC 60 MG/2 ML VIAL IM STA (16:00)
[2020-05-04] MEDS ORDERED: DEXAMETHASONE 10 MG/ML VIAL PO STA (16:00)
--- NOTE | 2020-05-04 16:16 | XRAY Report ---
PROCEDURE: Chest 2 View X-Ray INDICATIONS: Pleuritic inspiratory chest pain TECHNIQUE: 2 view(s) of the chest. COMPARISON: None. FINDINGS: Surgical changes and devices: None. Lungs and pleura: No pleural effusions or pneumothorax. Lungs are clear. Mediastinum: Mediastinal contours are normal. Heart size is normal. Bones and chest wall: No suspicious bony abnormalities. Soft tissues appear unremarkable. IMPRESSION: Normal chest radiographs. Reviewed by: Ochoa Tabares MD on 05/04/2020 4:15 PM PDT Approved by: Ochoa Tabares MD on 05/04/2020 4:15 PM PDT Station ID: [id number]
[2020-05-04 16:47] VITALS: BP 117/65
== END 2020-05-04 16:57 | disposition home or self-care (01) ==
LOC: ED 15:24
DX: R09.1 Pleurisy (principal); F17.200 Nicotine dependence, unspecified, uncomplicated
CPT/HCPCS: 71046; 96372; 99282; 99283; A9270